=== PATIENT | female | born 1955 | race Caucasian/White ===

== ENCOUNTER 2017-05-20 16:16 | Emergency (ER) | payer BC ==
--- NOTE | 2017-05-20 18:41 | RAD ---
LEFT WRIST THREE VIEWS: History: Pain. Fall while rollerskating. Comparison: None. FINDINGS: There is a minimally impacted and displaced distal radial fracture. There is intraarticular extensio n. Proximal and distal carpal rows appear to be intact. Fracture is not appreciated. IMPRESSION: Distal radius fracture. POS: [facility]
== END 2017-05-20 17:40 | disposition home or self-care (01) ==
LOC: SCSER 16:16
DX: S52.502A Unspecified fracture of the lower end of left radius, initial encounter for closed fracture (principal); V00.131A Fall from skateboard, initial encounter; Y93.51 Activity, roller skating (inline) and skateboarding
CPT/HCPCS: 29125